=== PATIENT | male | born 1965 | race Caucasian/White ===

== ENCOUNTER 2017-10-14 07:35 | Emergency (ER) | payer MEDICAID ==
[~2017-10-14] VITALS: Ht 170.2 cm; Wt 65.9 kg
[2017-10-14 07:37] VITALS: BP 144/95
[2017-10-14 07:57] LABS: CLARITY,URINE CLEAR (Clear); COLOR,URINE YELLOW (Yellow); GLUCOSE, URINE NEGATIVE (Neg); KETONES,URINE NEGATIVE (Neg); LEUKOCYTE ESTERASE ,URINE NEGATIVE (Neg); NITRITES, URINE NEGATIVE (Neg); OCCULT BLOOD,URINE NEGATIVE (Neg); PROTEIN,URINE NEGATIVE (Neg)
[2017-10-14] MEDS ORDERED: gentamicin inj 350 MG in normal saline 100ml IV soln 100 ML IV STA (07:58)
[2017-10-14] MEDS ORDERED: normal saline 1000ML IV soln IVB ONE (08:00)
[2017-10-14] MEDS ORDERED: fentaNYL/PF 50MCG/1 ML 2ML syringe IV ONE (08:00)
[2017-10-14] MEDS ORDERED: ampicillin/sulbac 3gm/NS 100ml 100 ML IV ONE (08:00)
[2017-10-14] MEDS ORDERED: LIDOcaine 1.5% w/epinephrine 1:200,000 5ml ampul IJ ONE (08:00)
[2017-10-14 08:05] LABS: UA COLLECTION TYPE CLN CATCH MIDSTREAM
[2017-10-14] MEDS ORDERED: BACDS PO (09:02)
[2017-10-14] MEDS ORDERED: CEPH500C5 PO (09:02)
[2017-10-14] MEDS ORDERED: CefTRIAXone 250MG IM Kit w/LIDOcaine IM ONE (10:10)
[2017-10-14] MEDS ORDERED: ondansetron 4mg rapidly disintigrating tab PO ONE (10:10)
[2017-10-14] MEDS ORDERED: azithromycin 250mg tablet PO ONE (10:10)
== END 2017-10-14 10:20 | disposition home or self-care (01) ==
LOC: ER 07:37
DX: N49.2 Inflammatory disorders of scrotum (principal); F17.210 Nicotine dependence, cigarettes, uncomplicated; Z79.2 Long term (current) use of antibiotics
CPT/HCPCS: 55100; 81003; 96365; 96367; 96375; 99284; A6266; A6449; J0295; J1580; J3010; J3490; J7030

== ENCOUNTER 2017-10-16 13:13 | Emergency (ER) | payer MEDICAID ==
[~2017-10-16] VITALS: Ht 167.6 cm; Wt 66.3 kg
[~2017-10-16 13:13] MED LIST: BACDS PO; CEPH500C5 PO
[2017-10-16 13:20] VITALS: BP 157/104
== END 2017-10-16 13:41 | disposition home or self-care (01) ==
LOC: ER 13:14
DX: Z48.01 Encounter for change or removal of surgical wound dressing (principal); Z79.2 Long term (current) use of antibiotics
CPT/HCPCS: 99281